=== PATIENT | female | born 1990 | race Caucasian/White ===

== ENCOUNTER 2017-06-11 12:21 | Emergency (ER) | payer OTHER ==
[~2017-06-11] VITALS: Ht 160 cm; Wt 61.2 kg
[2017-06-11] MEDS ORDERED: LAMO100 PO (12:34)
[2017-06-11] MEDS ORDERED: HYDPAM50 PO (12:34)
[2017-06-11] MEDS ORDERED: TOPI50 PO (12:34)
[2017-06-11] MEDS ORDERED: PRAZ1 PO (12:34)
[2017-06-11] MEDS ORDERED: FLUO10 PO (12:37)
[2017-06-11] MEDS ORDERED: SUBOXONE 8 MG-1 EACH SL (12:37)
[2017-06-11] MEDS ORDERED: Ferrous Glucon324 MG PO (12:40)
[2017-06-11] MEDS ORDERED: ORTHO TRI-CYCL1 EACH PO (12:40)
[2017-06-11 12:56] LABS: Source, Urine Clean Catch
[2017-06-11 13:02] LABS: Bilirubin, Urine Neg (Neg); Blood, Urine Neg (Neg); Glucose Qualitative, Urine Neg (Neg); Ketones, Urine Neg (Neg); Leukocyte Esterase, Urine 1+ (Neg); Nitrite, Urine Neg (Neg); Protein, Urine Neg (Neg); Urobilinogen, Urine NORM (Normal)
[2017-06-11 13:08] LABS: Appearance, Urine Clear (Clear); Color, Urine Yellow (P-Yellow)
[2017-06-11 13:09] LABS: Bacteria Few /hpf; Red Blood Cells, Urine 0-2 /hpf (0-2); Squamous Epithelial Cells Mod /hpf (Few); White Blood Cells, Urine 0-2 /hpf (0-5)
== END 2017-06-11 14:06 | disposition home or self-care (01) ==
LOC: ER 12:21
PROVIDERS: Emergency Medicine
DX: F11.23 Opioid dependence with withdrawal (principal); R05 Cough; Z79.899 Other long term (current) drug therapy
CPT/HCPCS: 71046; 81001; 87086; 99283

== ENCOUNTER 2018-07-07 16:59 | Emergency (ER) | payer OTHER ==
[~2018-07-07] VITALS: Ht 157.5 cm; Wt 65.8 kg
[~2018-07-07 16:59] MED LIST: FLUO10 PO; Ferrous Glucon324 MG PO; HYDPAM50 PO; LAMO100 PO; ORTHO TRI-CYCL1 EACH PO; PRAZ1 PO; SUBOXONE 8 MG-1 EACH SL; TOPI50 PO
== END 2018-07-07 17:53 | disposition home or self-care (01) ==
LOC: ER 16:59
DX: Z00.00 Encounter for general adult medical examination without abnormal findings (principal); Z79.899 Other long term (current) drug therapy; Z87.891 Personal history of nicotine dependence
CPT/HCPCS: 99282

== ENCOUNTER 2018-07-12 13:00 | Emergency (ER) | payer OTHER ==
[~2018-07-12] VITALS: Ht 165.1 cm; Wt 65.8 kg
[2018-07-12] MEDS ORDERED: CEPH500 PO (14:40)
[2018-07-12] MEDS ORDERED: Bactrim Ds Tab1 EACH PO (14:40)
== END 2018-07-12 14:46 | disposition home or self-care (01) ==
LOC: ER 13:00
DX: L98.9 Disorder of the skin and subcutaneous tissue, unspecified (principal); Z86.14 Personal history of Methicillin resistant Staphylococcus aureus infection; Z88.8 Allergy status to other drugs, medicaments and biological substances; Z79.899 Other long term (current) drug therapy; Z87.891 Personal history of nicotine dependence
CPT/HCPCS: 99283

== ENCOUNTER → 2019-06-16 | Outpatient (CLI) | payer OTHER ==
[~2019-06-16] MED LIST changes: +Bactrim Ds Tab1 EACH PO; +CEPH500 PO
[2019-06-20 15:07] LABS: CHLAMYDIA TRACHOMATIS, NAA Negative (Negative); HPV 16 Negative (Negative); HPV 18 Negative (Negative); HPV OTHER HR TYPES Negative (Negative); NEISSERIA GONORRHOEAE, NAA Negative (Negative)
== END | disposition home or self-care (01) ==
LOC: LAB 16:00 → LAB SHORT 16:00
PROVIDERS: Obstetrics & Gynecology
DX: Z34.01 Encounter for supervision of normal first pregnancy, first trimester (principal)
CPT/HCPCS: 87491; 87591; 87624; G0123

== ENCOUNTER → 2019-11-30 | Outpatient (CLI) | payer OTHER ==
[~2019-11-30] MED LIST changes: +ACET500 PO; +IBUP800 PO; +Methadone S5 MG/5 ML PO; +PRENATAL TABLE1 EAC2
== END | disposition home or self-care (01) ==
LOC: LAB SHORT 15:45 → LAB 15:45
DX: Z34.83 Encounter for supervision of other normal pregnancy, third trimester (principal)
CPT/HCPCS: 87081; 87653

== ENCOUNTER 2019-12-27 06:42 | Inpatient (IN) | payer OTHER ==
[~2019-12-27] VITALS: Ht 157.5 cm; Wt 89.5 kg
[~2019-12-27 06:42] MED LIST changes: -ACET500 PO; -IBUP800 PO; -Methadone S5 MG/5 ML PO; -PRENATAL TABLE1 EAC2
[2019-12-27] MEDS ORDERED: Methadone S5 MG/5 ML PO (08:06)
[2019-12-27] MEDS ORDERED: ACET500 PO (08:07)
[2019-12-27] MEDS ORDERED: PRENATAL TABLE1 EAC2 (08:07)
[2019-12-27 08:30] LABS: BASOPHILS ABSOLUTE AUTO 0.01 K/mm3 (0.00-0.23); BASOPHILS PERCENT AUTO 0 % (0-2); EOSINOPHILS ABSOLUTE AUTO 0.02 K/mm3 (0.00-0.68); EOSINOPHILS PERCENT AUTO 0 % (0-6); Hematocrit 34.7 % (33.0-51.0); Hemoglobin 11.2 g/dL (11.5-16.0); IMMATURE GRAN ABSOLUTE AUTO 0.03 K/mm3 (0.00-0.10); IMMATURE GRAN PERCENT AUTO 0 % (0-1); LYMPHOCYTES ABSOLUTE AUTO 2.17 K/mm3 (0.84-5.20); LYMPHOCYTES PERCENT AUTO 20 % (21-46); MONOCYTES ABSOLUTE AUTO 0.68 K/mm3 (0.16-1.47); MONOCYTES PERCENT AUTO 6 % (4-13); Mean Corpuscular HGB 29.6 pg (26.0-34.0); Mean Corpuscular HGB Conc 32.3 g/dL (31.5-36.5); Mean Corpuscular Volume 92 fL (80-100); Mean Platelet Volume 10.7 fL (9.1-12.4); NEUTROPHILS ABSOLUTE AUTO 7.93 K/mm3 (1.96-9.15); NEUTROPHILS PERCENT AUTO 73 % (41-73); Platelet Count 226 K/mm3 (150-400); RDW Coefficient Variation 14.3 % (11.7-14.2); RDW Standard Deviation 47.6 fL (35.1-46.3); Red Blood Cell Count 3.79 M/mm3 (3.80-5.20); White Blood Cell Count 10.84 K/mm3 (4.00-11.30)
[2019-12-27 11:03] LABS: U Amphetamine Screen Not Detected; U Methamphetamine Screen Not Detected
[2019-12-27 11:04] LABS: U Barbituate Screen Not Detected; U Benzodiazapine Screen Not Detected; U Buprenorphine Screen Not Detected; U Cannabinoids Screen Not Detected; U Cocaine Screen Not Detected; U Methadone Screen DETECTED; U Opiates Screen Not Detected; U Oxycodone Screen Not Detected; U Phencyclidine Screen Not Detected; U Propoxyphene Screen Not Detected
[2019-12-28 05:27] LABS: Hematocrit 26.6 % (33.0-51.0); Hemoglobin 8.8 g/dL (11.5-16.0); Mean Corpuscular HGB 30.7 pg (26.0-34.0); Mean Corpuscular HGB Conc 33.1 g/dL (31.5-36.5); Mean Corpuscular Volume 93 fL (80-100); Mean Platelet Volume 10.7 fL (9.1-12.4); Platelet Count 184 K/mm3 (150-400); RDW Coefficient Variation 14.5 % (11.7-14.2); RDW Standard Deviation 48.3 fL (35.1-46.3); Red Blood Cell Count 2.87 M/mm3 (3.80-5.20); White Blood Cell Count 14.11 K/mm3 (4.00-11.30)
[2019-12-28] MEDS ORDERED: IBUP800 PO (15:04)
--- NOTE | 2019-12-28 17:02 | NUR ---
CONSULT ON ALMOST 24 HOUR BABY. MOM TAKES METHADONE DAILY AND BABY PLANS TO BE INPATIENT FOR 5 DAYS. HER LAST BABY WAS 10 YEARS AGO AND BF BRIEFLY. BABY CURRENTLY FUSSY, MOM TIRED, LOVING TOWARDS BABY. INSTRUCT/DEMO POSITIONING FOR BETTER LATCH, WIDENING LATCH, TEA CUP HOLD TO ASSIST LATCH, USING SHIELD DURING ENGORGEMENT IF LATCH ISSUES THEN. BABY ABLE TO LATCH WELL AND SUCKLE, BUT RELEASED LATCH FREQUENTLY AT FIRST, HAVING SOME PROBLEMS SUCKING TISSUE DEEPER INTO HIS MOUTH. INSTRUCT MOM TO CALL FOR HELP WITH FEEDINGS TO AVOID BABY GETTING MORE FRUSTRATED. MOM ABLE TO SELF EXPRESS COLOSTRUM DROPS FOR BABY. QUESTIONS ANSWERED AND INSTRUCT IN CHANGES TO EXPECT DURING THE FIRST WEEK WITH BABY AND WITH FEEDINGS.
--- NOTE | 2019-12-28 17:06 | NUR ---
MOM FEELING OVERWHELMED WITH FUSSY BABY AND PROBLEMS WITH LATCHING. REQUESTING BREAST PUMP SO BABY CAN GET SOME MILK, IMPROVE HER PRODUCTION, AND THEN CONTINUE TO WORK ON LATCH AND SUCKLING. TALKED WITH HER NURSE AND SHE WILL GET A PUMP SET UP FOR HER, WITH INSTRUCTIONS. FOB IN ROOM CURRENTLY.
== END 2019-12-28 16:15 | disposition home or self-care (01) | DRG 806 ==
LOC: OBS 06:42 → BC 06:50
PROVIDERS: ADMIT Obstetrics & Gynecology
PROC: 10E0XZZ Delivery of Products of Conception, External Approach (ICD-10-PCS; principal; 2019-12-27)
PROC: 0HQ9XZZ Repair Perineum Skin, External Approach (ICD-10-PCS; 2019-12-27)
PROC: 3E033VJ Introduction of Other Hormone into Peripheral Vein, Percutaneous Approach (ICD-10-PCS; 2019-12-27)
PROC: 10907ZC Drainage of Amniotic Fluid, Therapeutic from Products of Conception, Via Natural or Artificial Opening (ICD-10-PCS; 2019-12-27)
PROC: 00HU33Z Insertion of Infusion Device into Spinal Canal, Percutaneous Approach (ICD-10-PCS; 2019-12-27)
PROC: 3E0R3BZ Introduction of Anesthetic Agent into Spinal Canal, Percutaneous Approach (ICD-10-PCS; 2019-12-27)
DX: O99.324 Drug use complicating childbirth (principal); O98.42 Viral hepatitis complicating childbirth; Z37.0 Single live birth; F11.20 Opioid dependence, uncomplicated; B19.20 Unspecified viral hepatitis C without hepatic coma; Z3A.40 40 weeks gestation of pregnancy; O70.0 First degree perineal laceration during delivery; Z87.891 Personal history of nicotine dependence
CPT/HCPCS: 36415; 51702; 85025; 85027; 86850; 86900; 86901; G0480; J1885; J2001; J3010; J7120

== ENCOUNTER → 2020-07-19 | Outpatient (CLI) | payer OTHER ==
[~2020-07-19] MED LIST changes: +ACET500 PO; +IBUP800 PO; +Methadone S5 MG/5 ML PO; +PRENATAL TABLE1 EAC2
[2020-07-24 15:11] LABS: HPV 16 Negative (Negative); HPV 18 Negative (Negative); HPV OTHER HR TYPES Negative (Negative)
== END | disposition home or self-care (01) ==
LOC: PLD 14:30 → LAB SHORT 14:30
PROVIDERS: Obstetrics & Gynecology
DX: Z01.419 Encounter for gynecological examination (general) (routine) without abnormal findings (principal)
CPT/HCPCS: 87624; G0123